=== PATIENT | female | born 1955 | race Caucasian/White ===

== ENCOUNTER 2020-11-24 12:40 | Emergency (ER) | payer MEDICAID, MEDICARE ==
[~2020-11-24] VITALS: Ht 154.9 cm; Wt 63.6 kg
[~2020-11-24 12:40] MED LIST: CLIN-26 PO
[2020-11-24 13:29] LABS: CLARITY,URINE CLEAR (Clear); COLOR,URINE YELLOW (Yellow); GLUCOSE, URINE NEGATIVE (Neg); KETONES,URINE NEGATIVE (Neg); LEUKOCYTE ESTERASE ,URINE NEGATIVE (Neg); NITRITES, URINE NEGATIVE (Neg); OCCULT BLOOD,URINE SMALL (Neg); PROTEIN,URINE NEGATIVE (Neg); UROBILINOGEN,URINE 0.2 E.U/dL (0.2-1.0)
[2020-11-24 13:36] LABS: UA COLLECTION TYPE CLN CATCH MIDSTREAM
[2020-11-24 13:37] LABS: BACTERIA,URINE NONE SEEN /HPF (Neg); MUCUS STRANDS NONE SEEN /LPF (Neg); RBC,URINE 0-2 /HPF (0-2); SQUAMOUS EPITHELIAL CELL,UR FEW /LPF (FEW); WBC,URINE NONE SEEN /HPF (0-4)
[2020-11-24] MEDS ORDERED: HYDROcodone/acetaminophen 5mg/325mg tablet PO ONE (15:40)
[2020-11-24] MEDS ORDERED: HYDR-3965 PO (16:11)
[2020-11-24 16:33] VITALS: BP 157/65
== END 2020-11-24 16:34 | disposition home or self-care (01) ==
LOC: ER 12:41
DX: D25.9 Leiomyoma of uterus, unspecified (principal); I10 Essential (primary) hypertension; Z88.8 Allergy status to other drugs, medicaments and biological substances; Z88.2 Allergy status to sulfonamides; Z88.1 Allergy status to other antibiotic agents; Z79.2 Long term (current) use of antibiotics; Z79.899 Other long term (current) drug therapy
CPT/HCPCS: 76830; 76856; 81001; 93976; 99284

== ENCOUNTER 2021-11-09 14:43 | Emergency (ER) | payer MEDICARE ==
[~2021-11-09] VITALS: Ht 152.4 cm; Wt 67.0 kg
[2021-11-09] MEDS ORDERED: CHOL20004 PO (15:15)
[2021-11-09] MEDS ORDERED: DOCU-148 PO (15:15)
[2021-11-09] MEDS ORDERED: TELM80TA2 PO (15:15)
[2021-11-09] MEDS ORDERED: DIAZ10TA PO (15:15)
[2021-11-09] MEDS ORDERED: IBUP-1984 PO (15:15)
[2021-11-09] MEDS ORDERED: ESTR-4 PO (15:15)
[2021-11-09] MEDS ORDERED: LEVO88TA2 PO (15:15)
--- NOTE | 2021-11-09 15:32 | NUR ---
PT BEING EVALUATED BY PROVIDER
[2021-11-09 16:21] LABS: BASOPHILS % (AUTO) 0.1 % (0-1); EOSINOPHILS % (AUTO) 0.3 % (0-6); HEMATOCRIT 38.4 % (35.0-45.0); HEMOGLOBIN 13.2 g/dl (12.0-16.0); LYMPHOCYTES # (AUTO) 1.1 X10'3 (1.1-4.8); LYMPHOCYTES % (AUTO) 7.6 % (21-51); MEAN CORPUSCULAR HEMOGLOBIN 33.6 PG (27.0-31.0); MEAN CORPUSCULAR HGB CONC 34.3 g/dL (33.0-36.5); MONOCYTES # (AUTO) 0.4 X10'3 (0-0.9); MONOCYTES % (AUTO) 2.9 % (2-12); NEUTROPHILS # (AUTO) 13.1 X10'3 (1.8-7.7); NEUTROPHILS % (AUTO) 89.1 % (42-75); PLATELET COUNT 351 X10'3 (140-440); RED BLOOD COUNT 3.92 X10'6 (4.20-5.60); RED CELL DISTRIBUTION WIDTH 13.9 % (11.5-14.5); WHITE BLOOD COUNT 14.7 X10'3 (4.5-11.0)
[2021-11-09 16:36] LABS: ALANINE AMINOTRANSFERASE 16 U/L (12-78); ALBUMIN/GLOBULIN RATIO 0.9 (1.1-1.5); ALKALINE PHOSPHATASE 54 IU/L (46-116); ANION GAP 10 (8-16); ASPARTATE AMINO TRANSFERASE 15 U/L (10-37); BILIRUBIN,TOTAL 0.7 MG/DL (0.1-1.0); BLOOD UREA NITROGEN 15 MG/DL (7-18); BUN/CREATININE RATIO 16.5 (6.6-38.0); CALCIUM 8.4 MG/DL (8.5-10.1); CHLORIDE 106 MMOL/L (99-107); CREATININE 0.91 MG/DL (0.40-0.90); GLUCOSE 111 MG/DL (70-104); POTASSIUM 3.7 MMOL/L (3.5-5.1); SODIUM 137 MMOL/L (135-145); TOTAL CARBON DIOXIDE 20.9 MMOL/L (24-32); TOTAL PROTEIN 6.3 G/DL (6.4-8.2); eGFR 62 ML/MIN
[2021-11-09] MEDS ORDERED: diphenhydrAMINE 25mg capsule PO ONE (16:45)
[2021-11-09 17:29] LABS: CLARITY,URINE CLEAR (Clear); COLOR,URINE YELLOW (Yellow); GLUCOSE, URINE NEGATIVE (Neg); KETONES,URINE NEGATIVE (Neg); LEUKOCYTE ESTERASE ,URINE NEGATIVE (Neg); NITRITES, URINE NEGATIVE (Neg); OCCULT BLOOD,URINE TRACE-INTACT (Neg); PH,URINE 6.5 (4.8-8.0); PROTEIN,URINE NEGATIVE (Neg); UROBILINOGEN,URINE 0.2 E.U/dL (0.2-1.0)
[2021-11-09 17:35] LABS: BACTERIA,URINE NONE SEEN /HPF (Neg); MUCUS STRANDS FEW /LPF (Neg); RBC,URINE 0-2 /HPF (0-2); SQUAMOUS EPITHELIAL CELL,UR FEW /LPF (FEW); UA COLLECTION TYPE CLN CATCH MIDSTREAM; WBC,URINE NONE SEEN /HPF (0-4)
[2021-11-09] MEDS ORDERED: HYDROcodone/acetaminophen 5mg/325mg tablet PO ONE (18:25)
[2021-11-09 19:48] VITALS: BP 125/62
== END 2021-11-09 19:49 | disposition home or self-care (01) ==
LOC: ER 14:43
DX: T78.40XA Allergy, unspecified, initial encounter (principal); I10 Essential (primary) hypertension; F32.9 Major depressive disorder, single episode, unspecified; Z88.2 Allergy status to sulfonamides; Z88.1 Allergy status to other antibiotic agents; Z88.8 Allergy status to other drugs, medicaments and biological substances; Z79.899 Other long term (current) drug therapy; X58.XXXA Exposure to other specified factors, initial encounter
CPT/HCPCS: 36415; 71045; 80053; 81001; 83735; 83880; 84145; 84484; 85025; 93005; 99285; Q0163

== ENCOUNTER 2021-12-21 02:40 | Emergency (ER) | payer MEDICARE ==
[~2021-12-21] VITALS: Ht 152.4 cm; Wt 68.2 kg
[~2021-12-21 02:40] MED LIST changes: +CHOL20004 PO; -CLIN-26 PO; +DIAZ10TA PO; +DOCU-148 PO; +ESTR-4 PO; +IBUP-1984 PO; +LEVO88TA2 PO; +TELM80TA2 PO
[2021-12-21 02:52] VITALS: BP 168/97
== END 2021-12-21 07:42 | disposition left against medical advice (07) ==
LOC: ER 02:40
DX: M25.511 Pain in right shoulder (principal); Z53.21 Procedure and treatment not carried out due to patient leaving prior to being seen by health care provider
CPT/HCPCS: 73030